=== PATIENT | male | born 1960 | race Two or more races ===

== ENCOUNTER → 2017-08-31 | Outpatient (CLI) | payer BC | END | disposition home or self-care (01) | LOC: HKI 13:34 | DX: M25.561 Pain in right knee (principal) | CPT/HCPCS: Z7500 ==

== ENCOUNTER → 2017-10-05 | Outpatient (CLI) | payer BC | END | disposition home or self-care (01) | LOC: HKI 11:08 | DX: M23.221 Derangement of posterior horn of medial meniscus due to old tear or injury, right knee (principal) | CPT/HCPCS: Z7500 ==